=== PATIENT | male | born 1970 | race Caucasian/White ===

== ENCOUNTER 2019-10-16 11:29 | Emergency (ER) | payer MEDICAID, MEDICARE ==
[~2019-10-16] VITALS: Ht 172.7 cm; Wt 89.7 kg
[~2019-10-16 11:29] MED LIST: DAPT500V6 IV; HYDR-3237 PO
[2019-10-16] MEDS ORDERED: SODIUM CHLORIDE FLUSH 10ML SYR IVF ONE (12:00)
[2019-10-16] MEDS ORDERED: ONDANSETRON 2MG/ML, 2ML IVPush ONE (12:00)
--- NOTE | 2019-10-16 12:02 | NUR ---
BREAK RN: ER PA WAS IN TO SEE PT. PT IN MODERTE DISTRESS D/T BACK & TESTICLE PAIN, STATES HE'S HAD MULTIPLE BACK SURGERIES AND HAS HAD CHRONIC BACK PAIN FOR YEARS, BUT THIS IS THE WORST PAIN HE'S BEEN IN. POC RV'WD WITH PT, HE VERBALIZES UNDERSTANDING.
[2019-10-16] MEDS ORDERED: ONDANSETRON 2MG/ML, 2ML ONE (12:05)
[2019-10-16] MEDS ORDERED: HYDROmorphone 1 MG/ML, 1ML INJ ONE ×2 (12:05→14:50)
[2019-10-16] MEDS: HYDROmorphone 2 MG/ML, 1ML IVPush PRN ×2 (12:12→14:52)
--- NOTE | 2019-10-16 12:20 | NUR ---
BREAK RN: ROSE NEVES, PT MEDICATED PER ORDERS. TO US VIA REINALDO. AT BS.
[2019-10-16 12:23] LABS: BASOPHILS # (AUTO) 0.03 x10^3/uL (0-0.1); BASOPHILS % (AUTO) 0 % (0-1); EOSINOPHILS # (AUTO) 0.16 x10^3/uL (0-0.4); EOSINOPHILS % (AUTO) 2 % (1-7); LYMPHOCYTES # (AUTO) 2.21 x10^3/uL (1-3.4); LYMPHOCYTES % (AUTO) 28 % (22-44); MD NO; MEAN CORPUSCULAR HEMOGLOBIN 31.3 pg (27.5-34.5); MEAN CORPUSCULAR HGB CONC 33.8 g/dL (33.2-36.2); MEAN CORPUSCULAR VOLUME 92.7 fL (81-97); MEAN PLATELET VOLUME 9.4 fL (7.4-10.4); MONOCYTES # (AUTO) 0.61 x10^3/uL (0.2-0.8); MONOCYTES % (AUTO) 8 % (2-9); NEUTROPHILS # (AUTO) 5.04 x10^3/uL (1.8-6.8); NEUTROPHILS % (AUTO) 63 % (42-75); PLATELET COUNT 188 x10^3/uL (130-400); RED BLOOD COUNT 5.11 x10^6/uL (4.38-5.82); RED CELL DISTRIBUTION WIDTH 13.4 % (9.4-14.8)
[2019-10-16 12:29] LABS: ALANINE AMINOTRANSFERASE 63 U/L (12-78); ALBUMIN 3.6 g/dL (3.4-5.0); ANION GAP 6 mmol/L (5-15); CALCIUM 10.4 mg/dL (8.5-10.1); CHLORIDE 112 mmol/L (98-107)
--- NOTE | 2019-10-16 12:29 | NUR ---
REPORT RECEIVED FROM ELSIE ARANGO.
[2019-10-16 12:31] LABS: MICROSCOPIC NOT IND
[2019-10-16 12:31] LABS: ALKALINE PHOSPHATASE 74 U/L (45-117); BILIRUBIN,TOTAL 0.3 mg/dL (0.2-1.0); TOTAL PROTEIN 6.7 g/dL (6.4-8.2)
--- NOTE | 2019-10-16 13:04 | NUR ---
PT BACK TO ROOM FROM US AT THIS TIME.
[2019-10-16] MEDS ORDERED: OMNIPAQUE 350 MG/ML, 100ML BOTTLE ONE (13:32)
--- NOTE | 2019-10-16 13:36 | NUR ---
pt got up from [facility] and using urinal at this time. pt's aox4. resps even and unlabored. jocelyn.
--- NOTE | 2019-10-16 14:25 | NUR ---
PT REMOVED ALL MONITORS AND CHANGING AT THIS TIME. PT'S AOX4. RESPS EVEN AND UNLABORED.
--- NOTE | 2019-10-16 14:43 | NUR ---
ICE WATER GIVEN PER REQUEST. AWAITING DC PAPERS.
[2019-10-16 14:52] VITALS: BP 114/80
--- NOTE | 2019-10-16 14:54 | NUR ---
PT MEDICATED PER EMAR FOR PAIN. PT TOLERATED WELL.
--- NOTE | 2019-10-16 15:31 | NUR ---
Patient given discharge instructions and they have confirmed that they understand the instructions. Patient ambulatory with steady gait.
== END 2019-10-16 15:31 | disposition home or self-care (01) ==
LOC: ED 13:52
DX: M54.5 Low back pain (principal); G89.29 Other chronic pain; N45.1 Epididymitis; F17.200 Nicotine dependence, unspecified, uncomplicated
CPT/HCPCS: 36415; 74177; 76870; 80053; 81003; 85025; 96374; 96375; 96376; 99285; J1170; J2405; Q9967